=== PATIENT | female | born 1980 | race Caucasian/White ===

== ENCOUNTER 2018-05-02 10:21 | Emergency (ER) | payer SELFPAY ==
[2018-05-02] MEDS ORDERED: ALPRAZOLAM 0.5 MG TABLET PO ONE (11:14)
--- NOTE | 2018-05-02 11:17 | ER Document Report ---
ED General - General Chief Complaint: Palpitations Stated Complaint: FAST HEART RATE Time Seen by Provider: 05/02/18 11:13 Mode of Arrival: Ambulatory Information source: Patient Notes: Chief complaint: Palpitation History of complain:( obtained from----patient) 37 years old female with a history of stress for the last few months. Since yesterday morning having a sensation of occasionally needing to take a deep breath, and feel like heart beating faster. She has a history of hypertension has been taking her medications. Denies any nausea vomiting diaphoresis or exertional shortness of breath. Tingling sensation in both tip of the fingers. No constitutional symptoms Onset: Yesterday gradual Duration: 2 days Severity: Mild to moderate Quality: As above Context: As above Exacerbating factor and relieving factors: As above anxiety REVIEW OF SYSTEMS: CONSTITUTIONAL : Denies fever, chills, or sweats. Denies recent illness. EENT: Denies eye, ear, throat, or mouth pain or symptoms. Denies nasal or sinus congestion or discharge. Denies throat, tongue, or mouth swelling or difficulty swallowing. CARDIOVASCULAR: Denies chest pain. Denies palpitations or racing or irregular heart beat. Denies ankle edema. RESPIRATORY: Denies cough, cold, or chest congestion. Denies shortness of breath, difficulty breathing, or wheezing. GASTROINTESTINAL: Denies distention. Denies nausea, vomiting, or diarrhea. Denies blood in vomitus, stools, or per rectum. Denies black, tarry stools. Denies constipation. GENITOURINARY: Denies difficulty urinating, painful urination, burning, frequency, blood in urine, or discharge. FEMALE GENITOURINARY: Denies vaginal bleeding, heavy or abnormal periods, irregular periods. Denies vaginal discharge or odor. MUSCULOSKELETAL: Denies back or neck pain or stiffness. Denies joint pain or swelling. SKIN: Denies rash, lesions or sores. HEMATOLOGIC : Denies easy bruising or bleeding. LYMPHATIC: Denies swollen, enlarged glands. NEUROLOGICAL: Denies confusion or altered mental status. Denies passing out or loss of consciousness. Denies dizziness or lightheadedness. Denies headache. Denies weakness or paralysis or loss of use of either side. Denies problems with gait or speech. Denies sensory loss, numbness, or tingling. Denies seizures. PSYCHIATRIC: Denies anxiety or stress. Denies depression, suicidal ideation, or homicidal ideation. ALL OTHER SYSTEMS REVIEWED AND NEGATIVE. PHYSICAL EXAMINATION: GENERAL: Well-appearing, well-nourished and in no acute distress. HEAD: Atraumatic, normocephalic. EYES: Pupils equal round and reactive to light, extraocular movements intact, conjunctiva are normal. ENT: Nares patent, oropharynx clear without exudates. Moist mucous membranes. NECK: Normal range of motion, supple without lymphadenopathy LUNGS: Breath sounds clear to auscultation bilaterally and equal. No wheezes rales or rhonchi. HEART: Regular rate and rhythm without murmurs ABDOMEN: Soft, nontender, nondistended abdomen. No guarding, no rebound. No masses appreciated. Examination of genitals-deferred Musculoskeletal: Normal range of motion, no pitting or edema. No cyanosis. NEUROLOGICAL: Cranial nerves grossly intact. Normal speech, normal gait. Normal sensory, motor exams PSYCH: Normal mood, normal affect. Except for anxiety no suicidal or homicidal ideation SKIN: Warm, Dry, normal turgor, no rashes or lesions noted. Dictation was performed using [employer] voice recognition software TRAVEL OUTSIDE OF THE [place] IN LAST 30 DAYS: No - Related Data Allergies/Adverse Reactions: Penicillins Allergy (Severe, Verified 05/02/18 10:22) Hives Past Medical History - Social History Smoking Status: Never Smoker Chew tobacco use (# tins/day): No Frequency of alcohol use: wine Drug Abuse: None Family History: Reviewed & Not Pertinent, CVA, Hypertension Patient has suicidal ideation: No Patient has homicidal ideation: No - Past Medical History Cardiac Medical History: Reports: Hx Hypertension - meds post delivery 06/23/15 Denies: Hx Coronary Artery Disease, Hx Heart Attack Pulmonary Medical History: Denies: Hx Asthma, Hx Bronchitis, Hx COPD, Hx Pneumonia Neurological Medical History: Denies: Hx Cerebrovascular Accident, Hx Seizures Renal/ Medical History: Denies: Hx Peritoneal Dialysis Musculoskeletal Medical History: Denies Hx Arthritis Past Surgical History: Reports: Hx Section, Hx Tubal Ligation - Immunizations Hx Diphtheria, Pertussis, Tetanus Vaccination: Yes Review of Systems - Review of Systems Notes: Dictated Physical Exam - Vital signs Vitals: Temp Pulse Resp BP Pulse Ox 98.2 F 118 H 14 119/77 98 05/02/18 10:31 05/02/18 10:31 05/02/18 10:31 05/02/18 10:31 05/02/18 10:31 - Notes Notes: Dictated Course - Re-evaluation Re-evalutation: 05/02/18 11:17 Given Xanax, subsequent clinical improvement discharge home - Vital Signs Vital signs: Temp Pulse Resp BP Pulse Ox 98.2 F 118 H 14 119/77 98 05/02/18 10:31 05/02/18 10:31 05/02/18 10:31 05/02/18 10:31 05/02/18 10:31 - EKG Interpretation by Nv EKG shows normal: Sinus rhythm - Sinus rhythm sinus tach at 107 bpm, normal axis no acute ST elevation ST depression T-wave inversion noted. Discharge - Discharge Referrals: GEO PERKINS NP [Primary Care Provider] - Follow up as needed
[2018-05-02] MEDS ORDERED: LORAZEPAM 1 MG TABLET PO ONE (13:03)
[2018-05-02] MEDS ORDERED: ASPIRIN 81 MG TABLET, CHEWABLE PO ONE (14:12)
[2018-05-02] MEDS ORDERED: NORMAL SALINE 1000 ML 1,000 ML IV ONE (14:49)
[2018-05-02 14:53] LABS: ABSOLUTE MONOCYTES (AUTO) 0.3 10^3/uL (0.1-1.4); ABSOLUTE NEUT (AUTO) 3.2 10^3/uL (1.7-8.2); BASOPHILS % (AUTO) 0.6 % (0-2); EOSINOPHILS % (AUTO) 0.3 % (0-6); HEMATOCRIT 43.5 % (36.0-47.0); HEMOGLOBIN 14.2 g/dL (12.0-15.5); LYMPHOCYTES % (AUTO) 22.8 % (13-45); MEAN CORPUSCULAR HEMOGLOBIN 28.2 pg (27.0-33.4); MEAN CORPUSCULAR HGB CONC 32.7 g/dL (32.0-36.0); MEAN CORPUSCULAR VOLUME 86 fl (80-97); MONOCYTES % (AUTO) 7.4 % (3-13); PLATELET COUNT 321 10^3/uL (150-450); RED BLOOD COUNT 5.04 10^6/uL (3.72-5.28); RED CELL DISTRIBUTION WIDTH 15.3 % (11.5-14.0); SEGMENTED NEUTROPHILS % (AUTO) 68.9 % (42-78); TOTAL CELLS COUNTED % (AUTO) 100 %; WHITE BLOOD COUNT 4.6 10^3/uL (4.0-10.5)
--- NOTE | 2018-05-02 14:55 | ER Document Report ---
ED Cardiac - General Chief Complaint: Palpitations Stated Complaint: FAST HEART RATE Time Seen by Provider: 05/02/18 11:13 Mode of Arrival: Ambulatory Information source: Patient Notes: Patient is a 37-year-old female with a history of some mild high blood pressure on HCTZ who presents today stating last night she started to feel her heart was racing fast with some mild shortness of breath. She denies any and all chest pain. She denies any headache, neck pain, neck swelling, nausea, vomiting, abdominal pain, lower extremity pain, or lower extremity swelling. She denies any recent trips or travel. Patient is not on control pills. She denies any family history of DVT/PE. She does state some mild numbness to the fingertips without any weakness. Patient does admit to some excess stress recently with her brother moving out of town leaving her to take care of her mom. Patient denies any suicidal ideations. TRAVEL OUTSIDE OF THE [place] IN LAST 30 DAYS: No - HPI Patient complains to provider of: Palpitations Was the onset of pain: Unknown Quality of pain: Intermittent Severity now: Mild Severity at worst: Mild Pain level currently: Denies Positive cardiac history: No Associated symptoms: Other - See above Exacerbated by: Denies Relieved by: Nothing Similar symptoms previously: No Recently seen / treated by doctor: No - Related Data Allergies/Adverse Reactions: Penicillins Allergy (Severe, Verified 05/02/18 10:22) Hives Past Medical History - General Information source: Patient - Social History Smoking Status: Never Smoker Cigarette use (# per day): No Chew tobacco use (# tins/day): No Smoking Education Provided: No Frequency of alcohol use: wine Drug Abuse: None Family History: Reviewed & Not Pertinent, CVA, Hypertension Patient has suicidal ideation: No Patient has homicidal ideation: No - Past Medical History Cardiac Medical History: Reports: Hx Hypertension - meds post delivery 06/23/15 Denies: Hx Coronary Artery Disease, Hx Heart Attack Pulmonary Medical History: Denies: Hx Asthma, Hx Bronchitis, Hx COPD, Hx Pneumonia Neurological Medical History: Denies: Hx Cerebrovascular Accident, Hx Seizures Renal/ Medical History: Denies: Hx Peritoneal Dialysis Musculoskeletal Medical History: Denies Hx Arthritis Past Surgical History: Reports: Hx Section, Hx Tubal Ligation - Immunizations Hx Diphtheria, Pertussis, Tetanus Vaccination: Yes Review of Systems - Review of Systems Constitutional: denies: Fever EENT: denies: Eye discharge, Nose discharge Cardiovascular: denies: Chest pain Respiratory: Short of breath. denies: Hurts to breathe, Hemoptysis Gastrointestinal: denies: Vomiting Genitourinary: denies: Dysuria Musculoskeletal: denies: Leg swelling Skin: Other - no hives. denies: Rash Neurological/Psychological: Other - no slurred speech -: Yes All other systems reviewed and negative Physical Exam - Vital signs Vitals: Temp Pulse Resp BP Pulse Ox 98.2 F 118 H 14 119/77 98 05/02/18 10:31 05/02/18 10:31 05/02/18 10:31 05/02/18 10:31 05/02/18 10:31 - General General appearance: Appears well, Alert - HEENT Head: Normocephalic, Atraumatic Eyes: Normal Pupils: PERRL - Respiratory Respiratory status: No respiratory distress Chest status: Nontender Breath sounds: Normal Chest palpation: Normal - Cardiovascular Rhythm: Tachycardia Heart sounds: Normal auscultation Murmur: No - Abdominal Inspection: Normal Distension: No distension Bowel sounds: Normal Tenderness: Nontender Organomegaly: No organomegaly - Back Back: Normal, Nontender - Extremities General upper extremity: Normal inspection, Nontender, Normal color, Normal ROM , Normal temperature General lower extremity: Normal inspection, Nontender, Normal color, Normal ROM , Normal temperature, Normal weight bearing. No: Yonatan's sign - Neurological Neuro grossly intact: Yes Cognition: Normal Orientation: AAOx4 [place] Coma Scale Eye Opening: Spontaneous [place] Coma Scale Verbal: Oriented Jonah Coma Scale Motor: Obeys Commands [place] Coma Scale Total: 15 Speech: Normal Motor strength normal: LUE, RUE, LLE, RLE Sensory: Normal - Psychological Associated symptoms: Normal affect, Normal mood - Skin Skin Temperature: Warm Skin Moisture: Dry Skin Color: Normal Course - Re-evaluation Re-evalutation: Given the history and physical examination, we will obtain basic labs, TSH, drug screen, electrolytes, and reassess. I have provided a liter of fluid. Patient denies any and all chest pain. She does not take any estrogens and has no calf pain, leg swelling, recent trips or travel. I do believe the patient has a low pretest probability for DVT/PE so a d-dimer has been added. EKG shows a heart rate currently of 99, normal sinus rhythm, normal axis, no obvious ST elevation or depression. 05/02/18 16:04 Labs as recorded. Chest pain-free. D-dimer still pending. Second troponin has been drawn. Chest x-ray shows normal heart, normal mediastinum, no fractures, normal lung villarreal, no pneumothorax. 05/02/18 17:54 Heart rate currently 84. Repeat troponin and d-dimer is recorded. TSH is recorded. Patient will be discharged home with strict return precautions and I will provide outpatient cardiology follow-up. - Vital Signs Vital signs: Temp Pulse Resp BP Pulse Ox 98.2 F 118 H 15 118/84 100 05/02/18 10:31 05/02/18 10:31 05/02/18 16:01 05/02/18 16:00 05/02/18 16:01 - Laboratory Result Diagrams: 05/02/18 13:10 05/02/18 13:10 Laboratory results interpreted by me: 05/02/18 05/02/18 13:10 13:10 RDW 15.3 H Glucose 136 H Calcium 10.4 H Total Protein 9.5 H Discharge - Discharge Clinical Impression: Palpitation, Chest discomfort, Anxiety Condition: Good Disposition: HOME, SELF-CARE Additional Instructions: Come back immediately for any return of pain, fevers, calf pain or leg swelling , shortness of breath, weakness or numbness, or any other acute problems. Please make sure that she follow-up with your primary care physician and possibly the candy waffle assembler that I have referred you to. Referrals: GEO PERKINS NP [NURSE PRACTITIONER] - Follow up as needed MJ CRAIG MD [EMERITUS] - Follow up as needed
[2018-05-02 15:07] LABS: ALANINE AMINOTRANSFERASE 18 U/L (9-52); ALBUMIN 4.5 g/dL (3.5-5.0); ALKALINE PHOSPHATASE 99 U/L (38-126); ANION GAP 15 (5-19); ASPARTATE AMINO TRANSFERASE 16 U/L (14-36); BILIRUBIN,DIRECT 0.3 mg/dL (0.0-0.4); BILIRUBIN,TOTAL 0.4 mg/dL (0.2-1.3); BLOOD UREA NITROGEN 11 mg/dL (7-20); CALCIUM 10.4 mg/dL (8.4-10.2); CARBON DIOXIDE 29 mmol/L (22-30); CHLORIDE 98 mmol/L (98-107); CREATINE KINASE 67 U/L (30-135); GLUCOSE 136 mg/dL (75-110); POTASSIUM 4.4 mmol/L (3.6-5.0); SODIUM 142.1 mmol/L (137-145); TOTAL PROTEIN 9.5 g/dL (6.3-8.2)
--- NOTE | 2018-05-02 15:10 | EKG REPORT ---
SEVERITY:- ABNORMAL ECG - SINUS RHYTHM BORDERLINE T WAVE ABNORMALITIES OLD SEPTAL DC VERSUS LEAD PLACEMENT : Confirmed by: Hawa Thomas MD 02-May-2018 15:10:02
--- NOTE | 2018-05-02 15:11 | EKG REPORT ---
SEVERITY:- ABNORMAL ECG - SINUS TACHYCARDIA ABNORMAL Q SUGGESTS OLD SEPTAL INFARCT VERSUS LEAD PLACEMENT. BORDERLINE T ABNORMALITIES, ANTERIOR LEADS : Confirmed by: Hawa Thomas MD 02-May-2018 15:10:55
--- NOTE | 2018-05-02 15:19 | RADIOLOGY REPORT (SQ) ---
EXAM DESCRIPTION: CHEST 2 VIEWS COMPLETED DATE/TIME: 05/02/2018 3:11 pm REASON FOR STUDY: 1, palpitations COMPARISON: None. EXAM PARAMETERS: NUMBER OF VIEWS: two views TECHNIQUE: Digital Frontal and Lateral radiographic views of the chest acquired. RADIATION DOSE: NA LIMITATIONS: none FINDINGS: LUNGS AND PLEURA: No opacities, masses or pneumothorax. No pleural effusion. MEDIASTINUM AND HILAR STRUCTURES: No masses or contour abnormalities. HEART AND VASCULAR STRUCTURES: Heart normal size. No evidence for failure. BONES: No acute findings. HARDWARE: None in the chest. OTHER: No other significant finding. IMPRESSION: NO ACUTE RADIOGRAPHIC FINDING IN THE CHEST. TECHNICAL DOCUMENTATION: JOB ID: [id number] [employer]- All Rights Reserved Reading location - IP/workstation name: [email or web address]
[2018-05-02 16:42] LABS: CREATINE KINASE MB < 0.22 ng/mL (<4.55); TROPONIN I 0.064 ng/mL
[2018-05-02 18:18] VITALS: BP 105/71
== END 2018-05-02 18:35 | disposition home or self-care (01) ==
LOC: ER 10:21
DX: F41.9 Anxiety disorder, unspecified (principal); R00.2 Palpitations; R00.0 Tachycardia, unspecified; R06.02 Shortness of breath; R20.0 Anesthesia of skin; I10 Essential (primary) hypertension; Z79.899 Other long term (current) drug therapy; Z88.0 Allergy status to penicillin
CPT/HCPCS: 93005; 99285; 96360; 36415; 82553; 82550; 83735; 84443; 85025; 80053; 84484; 85379; 71046; 93010; J7030